=== PATIENT | female | born 1995 | race Caucasian/White ===

== ENCOUNTER 2023-09-21 14:49 | Outpatient (REF) | payer OTHER, SELFPAY ==
[2023-09-21 16:09] LABS: Alanine Aminotransferase 17 U/L (0-31); Albumin Level 4.3 g/dL (3.5-5.0); Alkaline Phosphatase 56 U/L (39-117); Anion Gap 10 (12-20); Aspartate Amino Transferase 16 U/L (5-31); Bilirubin Total 0.5 mg/dL (0.0-1.0); Blood Urea Nitrogen 8 mg/dL (9-16); Calcium 9.8 mg/dL (8.4-10.2); Carbon Dioxide 25 mmol/L (22-29); Chloride 106 mmol/L (96-108); Estimated Glomerular Filt Rate > 60; Glucose Random 90 mg/dL (60-115); Potassium 4.3 mmol/L (3.3-5.1); Sodium 137 mmol/L (135-145); Total Protein 7.8 g/dL (6.5-8.0)
[2023-09-21 16:16] LABS: Erythrocyte Sedimentation Rate 13 MM/HR (0-20)
[2023-09-21 16:24] LABS: T4 Thyroxine 8.6 ug/dL (4.5-12.0); Thyroid Stimulating Hormone 1.93 uIU/mL (0.32-4.0)
[2023-09-22 19:49] LABS: Prolactin 11.6 ng/mL
== END 2023-09-21 14:50 | disposition home or self-care (01) ==
LOC: HO.LAB 14:49
PROVIDERS: PCP Internal Medicine; Visit Provider Psychiatry & Neurology Neurology
DX: G93.2 Benign intracranial hypertension (principal)
CPT/HCPCS: 36415; 80053; 84146; 84436; 84443; 85652

== ENCOUNTER 2023-10-05 08:54 | Day surgery (SDC) | payer OTHER, SELFPAY ==
--- NOTE | ~2023-10-05 | FL_ITS ---
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 Patient was placed prone on the fluoroscopy table. The back was prepped and draped in routine sterile fashion. Betadine was used as a skin antiseptic. Utilizing fluoroscopic guidance, the L2-3 interlaminar space was accessed with a 7 in 22 gauge quinkie spinal needle and clear CSF fluid obtained. Opening pressure was 16 cm H20 in the left lateral decubitus position. 8 cc of fluid was sent for analysis. The needle was removed without immediate complications. Total fluoroscopy time: 1.0 min FL/FL guided lumbar puncture LP IMPRESSION: Successful Fluoroscopic lumbar puncture This procedure was performed by Izaiah Roy PA-C and supervised by Dr. Nayak.
[2023-10-05 09:04] VITALS: BMI 57.0
[2023-10-05 09:17] LABS: UPreg QC Valid YES; Urine Pregnancy NEGATIVE (NEGATIVE)
[2023-10-05 12:35] VITALS: BP 109/62; PULSE 61; RESP 18; TEMP 36.6; O2SAT 98
[2023-10-05 12:50] VITALS: BP 131/65; PULSE 54; RESP 17; O2SAT 99
[2023-10-05 13:05] VITALS: BP 127/58; PULSE 55; RESP 16; O2SAT 99
[2023-10-05 13:06] LABS: CSF Appearance Clear, Colorless; CSF Tube # 1
[2023-10-05 13:16] LABS: Glucose CSF 54 mg/dL; Total Protein CSF 22.7 mg/dL (15-45)
[2023-10-05 13:20] VITALS: BP 130/67; PULSE 56; RESP 16; TEMP 36.6; O2SAT 99
[2023-10-05 14:24] LABS: Appearance CSF CLEAR; CSF Monos 0 %; CSF Other Cells % 0 %; CSF Tube # 4; Color CSF COLORLESS; Lymphocytes CSF 0 %; Neutrophils CSF 0 %; Red Blood Cell CSF 0 MM*3; White Blood Cell CSF 0 MM*3
== END 2023-10-05 13:27 | disposition home or self-care (01) ==
PROVIDERS: Physician Assistant Surgical; PCP Internal Medicine; Visit Provider Psychiatry & Neurology Neurology
PROC: 009U3ZZ Drainage of Spinal Canal, Percutaneous Approach (ICD-10-PCS; CPT 62270; principal; 2023-10-05 11:00)
DX: G93.2 Benign intracranial hypertension (principal); I10 Essential (primary) hypertension; J45.909 Unspecified asthma, uncomplicated; E66.01 Morbid (severe) obesity due to excess calories; Z68.43 Body mass index [BMI] 50.0-59.9, adult; Z79.899 Other long term (current) drug therapy
CPT/HCPCS: 62328; 81025; 82945; 84157; 87015; 87070; 87205; 89051

== ENCOUNTER → 2023-10-05 11:30 | Outpatient (BNV) | payer OTHER, SELFPAY | PROVIDERS: PCP Internal Medicine; Visit Provider Physician Assistant Surgical | DX: G93.2 Benign intracranial hypertension (principal) | CPT/HCPCS: 62328 ==